=== PATIENT | male | born 1950 | race Asian ===

== ENCOUNTER 2020-03-31 06:02 | Observation (INO) | payer MEDICARE, OTHER ==
[2020-03-31] MEDS ORDERED: Diltiazem HCl 125 MG, Admixture Fee 1 EACH in Sodium Chloride 0.9% 100 ML IVPB SCH (06:30)
[2020-03-31 07:18] LABS: Troponin I 0.019 ng/mL (< 0.028)
[2020-03-31] MEDS ORDERED: Acetaminophen 325 MG TAB PO PRN (08:30)
--- NOTE | 2020-03-31 08:36 | PDOC.HHP ---
Hospitalist HPI - History of Present Illness Palpitations History of Present Illness: Patient is a 69-year-old male with a history of hypertension and a history of atrial fibrillation with rapid ventricular response. Patient is followed by Dr. Barnes. Patient reports he was in his usual state of health until he got up about 1:30 in the morning to go to the bathroom and noted he was having some tachycardia and palpitations. He checked his blood pressure and heart rate and his heart rate was very fast between 150 and 170. He denied any shortness of breath or chest pain. He presented to the emergency department in [place]. He was noted to be in A. fib with RVR. He was started on a diltiazem drip. Subsequently was transferred to this facility. At some point he converted back to normal sinus rhythm which is where he remains right now although he is still on the diltiazem drip. He feels completely normal and back to his usual state of health. Hospitalist ROS - Review of Systems Constitutional: denies: fever, chills Respiratory: denies: cough, shortness of breath All other systems reviewed; all pertinent +/- noted in HPI/Subj - Medication Medications: Xarelto 20 mg p.o. daily Flecainide 50 mg p.o. every 12 hours Aspirin 325 mg p.o. daily Lisinopril/HCTZ 2024 08 p.o. daily Hospitalist History - Past Medical History Cardiac: reports: AFIB, HTN - Family History Family History: reports: hypertension (Father, however he lived to be 97 years old) - Social History Smoking Status: Former smoker Alcohol: reports: Occassional Drugs: reports: none Living Situation: With Family Other Social History: , full code. His would be his surrogate decision-maker. - Exam General Appearance: NAD, awake alert Neck: supple, symmetric, no JVD, no thyromegaly, no lymphadenopathy, no carotid bruit Heart: RRR, no murmur, no gallops, no rubs, normal peripheral pulses Respiratory: CTAB, no wheezes, no rales, no ronchi, normal chest expansion, no tachypnea, normal percussion Gastrointestinal: soft, non-tender, non-distended, normal bowel sounds, no palpable masses, no hepatomegaly, no splenomegaly, no bruit Extremities: no cyanosis, no clubbing, no edema Skin: normal turgor, no lesions, no rashes Neurological: cranial nerve grossly intact, normal sensation to touch, no weakness, no focal deficits, no new deficit Musculoskeletal: normal tone, normal strength, no muscle wasting Psychiatric: normal affect, normal behavior, A&O x 3 Hospitalist Results - Labs Lab results: Troponin I 0.019 ng/mL (< 0.028) 03/31/20 06:37 Additional comment: Labs from the ER visit in [place] reviewed. No significant findings. Hospitalist H&P A/P - Problem (1) Atrial fibrillation Code(s): I48.91 - UNSPECIFIED ATRIAL FIBRILLATION Status: Acute (2) Essential hypertension Code(s): I10 - ESSENTIAL (PRIMARY) HYPERTENSION Status: Acute - Plan Plan: Atrial fibrillation with rapid ventricular response: Patient reports he has been compliant with his flecainide at home. He is already anticoagulated. He is currently back in a normal sinus rhythm on a diltiazem drip. Patient will be placed in observation on telemetry. Consult cardiology. Continue checking troponins. Hypertension: Continue with his lisinopril HCTZ.
[2020-03-31] MEDS ORDERED: Aspirin 325 mg Enteric Coated Tablet PO SCH (09:00)
[2020-03-31] MEDS ORDERED: Rivaroxaban 10 MG TAB PO SCH (09:00)
[2020-03-31] MEDS ORDERED: Flecainide 50 MG TAB PO SCH (09:00)
[2020-03-31] MEDS ORDERED: Lisinopril/Hydrochlorothiazide 20/25 mg Tablet PO SCH (09:00)
[2020-03-31 09:56] LABS: Troponin I 0.026 ng/mL (< 0.028)
[2020-03-31 11:06] VITALS: BP 98/57
--- NOTE | 2020-03-31 15:00 | CON ---
DATE OF CONSULTATION: 03/31/2020 REASON FOR CONSULTATION: Atrial fibrillation with RVR. HISTORY OF PRESENT ILLNESS: Mr. Becker is a pleasant 69-year-old Turkish gentleman, who comes to the hospital for tachycardia. He was brought into the ER for palpitations. Heart rate was between 150 to 170s. He felt fine otherwise, just palpitations. In the ER in [place], he was noted to be in atrial fibrillation with RVR. He was started on diltiazem drip and transferred over here for admission and further care. On the way into the hospital, he converted back to sinus rhythm, and he has remained in sinus ever since. Currently in sinus rhythm in the 70s. Feeling well, feeling back to normal. Mr. Becker tells me that since we stopped his flecainide, which was in September of this year, he has had a lot more episodes of palpitations to the point where recently he is feeling a lot more episodes now. PAST MEDICAL HISTORY: 1. Hypertension. 2. Atrial fibrillation, paroxysmal. FAMILY HISTORY: Noncontributory. SOCIAL HISTORY: Former smoker. Social alcohol use. No drug use. OUTPATIENT MEDICATIONS: 1. Xarelto 20 mg a day. 2. Aspirin 325 a day. 3. Lisinopril/hydrochlorothiazide 20/25 a day. He had his flecainide stopped in September of this year due to bradycardia and inability to put him on a beta evangelista. REVIEW OF SYSTEMS: A 12-point review of systems was done and was found to be negative other than stated in the history of present illness. PHYSICAL EXAMINATION: VITAL SIGNS: Temperature 97.2, pulse 72, respiratory rate 16, saturating 98% on room air, and blood pressure 116/82. GENERAL: Awake, alert, and oriented x3. No distress. HEENT: Normocephalic and atraumatic. NECK: Supple. LUNGS: Clear. CARDIOVASCULAR: S1 and S2. No S3 or S4. No murmurs. No rubs. ABDOMEN: Soft. Positive bowel sounds. EXTREMITIES: No edema. SKIN: Warm and dry. LABORATORY DATA: Laboratory work was reviewed. Hematology unremarkable. Coags were normal. Chemistries; potassium was 3.4. Troponin I was negative x3. ASSESSMENT AND PLAN: 1. Paroxysmal atrial fibrillation. 2. Hypertension. 3. Hypokalemia. PLAN: 1. Replace potassium, already has been replaced. 2. He is back to sinus rhythm and feeling much better. 3. We will plan on restarting flecainide at 50 mg twice a day as we had stopped it just a few months ago. 4. Continue Xarelto for stroke prophylaxis as his CHADS-VASc score is 2 for age and hypertension. 5. Continue other medications. 6. Follow up in the office in 4 weeks. 7. If he recurs, we may need to offer an atrial fibrillation ablation. May discharge Mr. Becker home. Thank you for letting us to participate in the care of your patient. We will follow. Job ID: [id number]
[2020-03-31 15:04] LABS: SARS-CoV-2 MS2 Positive; SARS-CoV-2 N Gene Negative; SARS-CoV-2 S Gene Negative; SARS-CoV-2 by NAA Not Detected (NotDetected); SARS-CoV-2 orf1ab Negative
--- NOTE | 2020-04-01 15:58 | DIS ---
DATE OF ADMISSION: 03/31/2020 DATE OF DISCHARGE: 03/31/2020 DISCHARGE DIAGNOSES: 1. Atrial fibrillation with rapid ventricular response. 2. Hypertension. HISTORY: The patient is a 69-year-old male with a history of atrial fibrillation, who awoke in the night having some palpitations and tachycardia. He presented to the Emergency Department in [place], where he was noted to be in atrial fibrillation with RVR. He was started on diltiazem drip and had potassium replaced at that time. He was transferred to this facility and at some point converted back to a sinus rhythm here. The patient was feeling back to his baseline, but was still on the drip. He was placed in observation status, subsequently started on his home medications, which initially were believed to have included the flecainide as the patient had that with him in his bag of home medications. Subsequently, his blood pressure dropped into the 90s and the drip was discontinued. He was seen in consultation by Dr. Barnes, who had confirmed that the patient's flecainide had actually been discontinued a couple of months prior. He felt the patient was stable to discharge to resume the flecainide. The patient was asymptomatic and his troponins remained stable and therefore he will be discharged. DISPOSITION: The patient is discharged to home. He will have a heart healthy diet. DISCHARGE MEDICATIONS: Include, 1. Flecainide 50 p.o. b.i.d. 2. Xarelto 20 mg p.o. daily. 3. Aspirin 325 mg daily. 4. Lisinopril/hydrochlorothiazide 20/25 one p.o. daily. DISCHARGE INSTRUCTIONS: He is to have a heart healthy diet. Activity as tolerated. He will follow up with Dr. Barnes. He can return to the hospital at anytime he has the need to do so. Job ID: [id number]
== END 2020-03-31 15:05 | disposition home or self-care (01) ==
LOC: ERS 06:02 → ERHOLD 06:27
PROVIDERS: ADMIT Internal Medicine; ATTEND Internal Medicine
DX: I48.0 Paroxysmal atrial fibrillation (principal); I10 Essential (primary) hypertension; E87.6 Hypokalemia; Z87.891 Personal history of nicotine dependence; Z79.01 Long term (current) use of anticoagulants; Z79.82 Long term (current) use of aspirin; Z79.899 Other long term (current) drug therapy; Z20.828 Contact with and (suspected) exposure to other viral communicable diseases
CPT/HCPCS: 84484; 93005; U0003; 36415; 87635